=== PATIENT | female | born 1975 | race Caucasian/White ===

== ENCOUNTER → 2021-07-06 | Outpatient (CLI) | payer MEDICARE, OTHER ==
[~2021-07-06] MED LIST: MEDROL4 MG PO
== END ==
LOC: EMI 05-17 13:00
DX: E75.21 Fabry (-Anderson) disease (principal); G57.11 Meralgia paresthetica, right lower limb; I63.9 Cerebral infarction, unspecified; R42 Dizziness and giddiness
CPT/HCPCS: 70551